=== PATIENT | female | born 1970 | race Caucasian/White ===

== ENCOUNTER → 2016-09-18 | Outpatient (CLI) | payer OTHER ==
[~2016-09-18] MED LIST: ESTR1TAB PO; LUMI0.01 OP; SYNT175T2 PO
--- NOTE | 2016-09-18 16:37 | REP ---
Clinical: Pain. Fall. Technique: Neutral and frog lateral views of the left hip. Findings: Age-related changes are appreciated. No acute fracture or dislocation. Surrounding soft tissues are unremarkable. Impression: No acute fracture or dislocation. Signed by Valente Degroot MD 09/18/2016 04:29 P
== END ==
LOC: M WUC 16:17
PROVIDERS: ATTEND Nurse Practitioner Family
DX: M25.552 Pain in left hip (principal); W00.0XXA Fall on same level due to ice and snow, initial encounter; Y92.9 Unspecified place or not applicable; Y93.9 Activity, unspecified; Y99.9 Unspecified external cause status

== ENCOUNTER → 2018-12-24 | Outpatient (REF) | payer OTHER ==
[2018-12-26 00:07] LABS: ANTINUCLEAR ANTIBODIES DIRECT Negative (Negative); CYCLIC CITRULLINATED PEPTIDE 5 units (0-19); Lyme Disease IgG/IgM Antibodie <0.91 ISR (0.00-0.90); Lyme Disease IgM Ab Quantitati <0.80 index (0.00-0.79)
== END ==
LOC: M LAB REF 13:24
PROVIDERS: ATTEND Internal Medicine
DX: M25.50 Pain in unspecified joint (principal)

== ENCOUNTER → 2020-03-20 | Outpatient (REF) | payer OTHER ==
[2020-05-06 23:07] LABS: BASO % 0.8 % (0.0-1.0); EOS # 0.1 10^3/uL (0.0-0.5); EOS % 2.6 % (0.0-3.0); HEMATOCRIT 46.1 % (36.0-47.0); HEMOGLOBIN 15.1 g/dl (12.0-15.5); LYMPH # 1.3 10^3/uL (1.5-5.0); LYMPH % 33.3 % (24.0-44.0); MEAN CORPUSCULAR HEMOGLOBIN 29.3 pg (27.0-33.0); MEAN CORPUSCULAR HGB CONC 32.8 g/dl (32.0-36.5); MEAN CORPUSCULAR VOLUME 89.5 fl (80.0-96.0); MONO # 0.5 10^3/uL (0.0-0.8); MONO % 12.9 % (0.0-5.0); NEUTROPHILS # 1.9 10^3/uL (1.5-8.5); NEUTROPHILS % 50.4 % (36.0-66.0); PLATELET COUNT, AUTOMATED 311 10^3/uL (150-450); RED BLOOD COUNT 5.15 10^6/uL (4.00-5.40); WHITE BLOOD COUNT 3.8 10^3/uL (4.0-10.0)
[2020-05-15 21:33] LABS: HEMOGLOBIN A1c 5.3 %
[2020-05-16 00:43] LABS: ALBUMIN 3.8 GM/DL (3.2-5.2); ALT/SGPT 24 U/L (12-78); BILIRUBIN,TOTAL 0.4 MG/DL (0.2-1.0); BLOOD UREA NITROGEN 13 MG/DL (7-18); CALCIUM LEVEL 8.9 MG/DL (8.5-10.1); CARBON DIOXIDE LEVEL 31 MEQ/L (21-32); CHLORIDE LEVEL 108 MEQ/L (98-107); CREATININE FOR GFR 0.87 MG/DL (0.55-1.30); FREE T4 1.43 NG/DL (0.76-1.46); GLOMERULAR FILTRATION RATE > 60.0 (>51); GLUCOSE, FASTING 88 MG/DL (70-100); POTASSIUM SERUM 4.5 MEQ/L (3.5-5.1); SODIUM LEVEL 140 MEQ/L (136-145); TOTAL 25(OH) VITAMIN D 74.8 NG/ML (30.0-100.0); TOTAL PROTEIN 6.8 GM/DL (6.4-8.2)
== END ==
LOC: M LABDRWAD 15:32
PROVIDERS: ATTEND Physician Assistant
DX: Z13.29 Encounter for screening for other suspected endocrine disorder (principal); E03.9 Hypothyroidism, unspecified

== ENCOUNTER → 2020-09-21 | Outpatient (CLI) | payer OTHER ==
[2020-09-21 12:21] LABS: EOS # 0.2 10^3/uL (0.0-0.5); EOS % 3.8 % (0.0-3.0); HEMATOCRIT 43.4 % (36.0-47.0); HEMOGLOBIN 14.3 g/dl (12.0-15.5); LYMPH # 1.3 10^3/uL (1.5-5.0); LYMPH % 33.4 % (24.0-44.0); MEAN CORPUSCULAR HEMOGLOBIN 29.5 pg (27.0-33.0); MEAN CORPUSCULAR HGB CONC 32.9 g/dl (32.0-36.5); MEAN CORPUSCULAR VOLUME 89.5 fl (80.0-96.0); MONO # 0.5 10^3/uL (0.0-0.8); MONO % 13.2 % (2.0-8.0); NEUTROPHILS # 1.9 10^3/uL (1.5-8.5); NEUTROPHILS % 48.6 % (36.0-66.0); PLATELET COUNT, AUTOMATED 279 10^3/uL (150-450); RED BLOOD COUNT 4.85 10^6/uL (4.00-5.40)
[2020-09-21 12:59] LABS: ALBUMIN 3.8 GM/DL (3.2-5.2); ALT/SGPT 32 U/L (12-78); BILIRUBIN,TOTAL 0.5 MG/DL (0.2-1.0); BLOOD UREA NITROGEN 18 MG/DL (7-18); CALCIUM LEVEL 9.1 MG/DL (8.5-10.1); CARBON DIOXIDE LEVEL 28 MEQ/L (21-32); CHLORIDE LEVEL 105 MEQ/L (98-107); FREE T4 1.22 NG/DL (0.76-1.46); GLOMERULAR FILTRATION RATE > 60.0 (>51); GLUCOSE, FASTING 85 MG/DL (70-100); POTASSIUM SERUM 4.8 MEQ/L (3.5-5.1); SODIUM LEVEL 140 MEQ/L (136-145); TOTAL 25(OH) VITAMIN D 53.9 NG/ML (30.0-100.0); TOTAL PROTEIN 6.6 GM/DL (6.4-8.2)
== END ==
LOC: M WUC 10:33
PROVIDERS: ATTEND Physician Assistant
DX: E03.9 Hypothyroidism, unspecified (principal)

== ENCOUNTER → 2020-11-13 | Outpatient (CLI) | payer OTHER ==
[2020-11-13 15:47] LABS: BASO % 0.7 % (0.0-1.0); EOS # 0.1 10^3/uL (0.0-0.5); EOS % 2.5 % (0.0-3.0); HEMATOCRIT 43.1 % (36.0-47.0); LYMPH # 1.4 10^3/uL (1.5-5.0); LYMPH % 32.9 % (24.0-44.0); MEAN CORPUSCULAR HGB CONC 32.5 g/dl (32.0-36.5); MEAN CORPUSCULAR VOLUME 89.4 fl (80.0-96.0); MONO # 0.4 10^3/uL (0.0-0.8); MONO % 9.1 % (2.0-8.0); NEUTROPHILS # 2.4 10^3/uL (1.5-8.5); NEUTROPHILS % 54.8 % (36.0-66.0); PLATELET COUNT, AUTOMATED 322 10^3/uL (150-450); RED BLOOD COUNT 4.82 10^6/uL (4.00-5.40); WHITE BLOOD COUNT 4.4 10^3/uL (4.0-10.0)
[2020-11-13 16:15] LABS: ERYTHROCYTE SEDIMENTATION RATE 7 mm/hr (0-30)
[2020-11-13 16:47] LABS: ALBUMIN 3.9 GM/DL (3.2-5.2); ALT/SGPT 34 U/L (12-78); BILIRUBIN,TOTAL 0.5 MG/DL (0.2-1.0); BLOOD UREA NITROGEN 16 MG/DL (7-18); CALCIUM LEVEL 9.2 MG/DL (8.5-10.1); CARBON DIOXIDE LEVEL 30 MEQ/L (21-32); CHLORIDE LEVEL 107 MEQ/L (98-107); CREATININE FOR GFR 0.67 MG/DL (0.55-1.30); FERRITIN 75 NG/ML (8-252); FREE T4 1.19 NG/DL (0.76-1.46); GLOMERULAR FILTRATION RATE > 60.0 (>51); GLUCOSE, FASTING 87 MG/DL (70-100); IRON (FE) 88 UG/DL (50-170); MAGNESIUM LEVEL 2.4 MG/DL (1.8-2.4); PERCENT SATURATION 30.1 % (13.2-45.0); POTASSIUM SERUM 4.2 MEQ/L (3.5-5.1); RHEUMATOID FACTOR QUANT < 10.0 IU/ML (<15.0); SODIUM LEVEL 142 MEQ/L (136-145); TOTAL IRON BINDING CAPACITY 292 UG/DL (250-450); TOTAL PROTEIN 6.8 GM/DL (6.4-8.2)
[2020-11-13 16:48] LABS: THYROID PEROXIDASE ANTIBODY < 28.0 U/ML (<60.0); TOTAL 25(OH) VITAMIN D 37.4 NG/ML (30.0-100.0)
[2020-11-13 16:49] LABS: VITAMIN B12 LEVEL 891 PG/ML (247-911)
[2020-11-15 23:07] LABS: ANA (HEP2) Negative (.); CYCLIC CITRULLINATED PEPTIDE 3 units (0-19); Lyme Disease IgG/IgM Antibodie <0.91 ISR (0.00-0.90); Lyme Disease IgM Ab Quantitati <0.80 index (0.00-0.79); TISSUE TRANSGLUTAMINASE IgA <2 U/mL (0-3); TISSUE TRANSGLUTAMINASE IgG <2 U/mL (0-5); UNITSIGA FOR GLIADIN IGA 5 units (0-19); UNITSIGG FOR GLIADIN IGG 1 units (0-19)
== END ==
LOC: M PLALAB 12:25
PROVIDERS: ATTEND Family Medicine
DX: M25.50 Pain in unspecified joint (principal); E03.9 Hypothyroidism, unspecified; R00.2 Palpitations; R53.83 Other fatigue; E55.9 Vitamin D deficiency, unspecified; D51.9 Vitamin B12 deficiency anemia, unspecified

== ENCOUNTER → 2020-12-29 | Outpatient (CLI) | payer OTHER ==
--- NOTE | 2021-01-01 09:16 | REP ---
INDICATION: HOD LYMPHOMA UNSPECIFIED COMPARISON: 06/18/2013 TECHNIQUE: Axial noncontrast images from the thoracic inlet to the upper abdomen with coronal and sagittal reformations. This CT examination was performed using the following dose reduction techniques: Automated exposure control, adjustment of mA and/or kv according to the patient's size, and use of iterative reconstruction technique. FINDINGS: Biapical scarring unchanged. The lung burger are otherwise well aerated and essentially clear. No consolidation, significant nodule or mass. No effusion. No pneumothorax. Tracheobronchial tree is patent. No obvious axillary, hilar, or mediastinal adenopathy. Calcified structure in the middle mediastinum anterior to the thoracic aortic arch is unchanged and may represent calcified lymph nodes. Surrounding musculoskeletal structures are intact. Limited upper abdomen demonstrates normal bilateral adrenal glands. The gallbladder demonstrates considerable wall thickening and multiple gallstones with central gaseous components. IMPRESSION: 1. No acute mediastinal or pleuroparenchymal process. Specifically, no adenopathy given history of lymphoma. 2. Abnormal appearance to the gallbladder with wall thickening and multiple gallstones containing central gas. <Electronically signed by Valente Degroot > 01/01/21 [id number]
== END ==
LOC: M RAD 08:41
PROVIDERS: ATTEND Internal Medicine Pulmonary Disease
DX: C81.90 Hodgkin lymphoma, unspecified, unspecified site (principal); K80.20 Calculus of gallbladder without cholecystitis without obstruction; K82.8 Other specified diseases of gallbladder

== ENCOUNTER → 2021-01-02 | Outpatient (CLI) | payer OTHER ==
--- NOTE | 2021-01-02 12:01 | PFTRPT ---
Site: [facility], [place], [address] [place] [address], [id number] ID: [id number] Name: MIESHA HARTMANN Visit Date: 01/02/2021 Second ID: [id number] Referring Doctor: Priya Yen MD Reviewing Doctor: Hussein Michaels MD Business Rules Analyst: Anabela ARNOLD RRT Age: 50 : 1970 Sex: Female Race: Height: 69.00 Inches Weight: 190.00 Lbs BSA: 2.02 Order IDs: [id number] Requested Test(s): <RESP-PFT.PFT B/A> Diagnosis: C81.90 test meet the ATS standards for acceptability and repeatability. Pt was given four puffs of albuterol for post bronchodilator Review Status: Not Reviewed Pre-Bronch Post-Bronch Pred Actual %Pred Actual %Chng SPIROMETRY FVC (L) 4.14 3.45 83 3.54 2 FEV1 (L) 3.25 2.75 84 2.89 5 FEV1/FVC (%) 80 80 99 82 2 FEF 25% (L/sec) 5.70 7.21 126 7.73 7 FEF 50% (L/sec) 3.86 2.95 76 3.50 18 FEF 75% (L/sec) 1.40 1.00 71 1.27 26 FEF 25-75% (L/sec) 2.98 2.43 81 2.98 22 FEF Max (L/sec) 7.47 8.60 115 8.13 -5 FIVC (L) 3.46 3.51 1 FIF 50% (L/sec) 3.90 6.32 161 7.09 12 FIF Max (L/sec) 6.55 7.10 8 MVV (L/min) 106 102 96 Expiratory Time (sec) 5.17 5.96 15 Back Extrap Vol (L) 0.09 0.11 29 Time To FEFmax (sec) 0.064 0.070 8 LUNG VOLUMES SVC (L) 3.72 3.58 96 IC (L) 2.51 2.77 110 ERV (L) 1.21 0.81 66 TGV (L) 3.29 3.18 96 RV (Pleth) (L) 2.08 2.37 113 TLC (Pleth) (L) 5.80 5.94 102 RV/TLC (Pleth) (%) 36 40 110 DIFFUSION DLCOunc (ml/min/mmHg) 24.56 25.54 103 DLCOcor (ml/min/mmHg) 24.56 25.38 103 DL/VA (ml/min/mmHg/L) 4.23 4.94 116 VA (L) 5.80 5.14 88 BHT (sec) 9.36 IVC (L) 3.55 TLC (SB) (L) 5.29 AIRWAYS RESISTANCE Raw (cmH2O/L/s) 1.86 1.13 60 Gaw (L/s/cmH2O) 1.03 0.95 92 sRaw (cmH2O*s) 4.76 3.72 78 sGaw (1/cmH2O*s) 0.20 0.28 140 BLOOD GASES Hgb (gm/dL) 13.6
== END ==
LOC: M CARPUL 10:56
PROVIDERS: ATTEND Internal Medicine Pulmonary Disease
DX: C81.90 Hodgkin lymphoma, unspecified, unspecified site (principal)

== ENCOUNTER → 2021-01-28 | Outpatient (CLI) | payer OTHER ==
--- NOTE | 2021-01-29 09:12 | REP ---
INDICATION: LT SHOULDER BURSITIS. Left shoulder pain and stiffness. No injury. COMPARISON: None. TECHNIQUE: Axial, oblique coronal, oblique sagittal imaging planes utilized. T1 and T2 weighted scans are included with without fat saturation. FINDINGS: The left glenohumeral and acromioclavicular joints are normally aligned. There is mild osteoarthritic hypertrophy at the acromioclavicular joint including a inferiorly directed spur the distal clavicle which indents the superior margin of the musculotendinous junction of the supraspinatus. There is mild swelling and increased signal intensity in the supraspinatus tendon diffusely on oblique coronal T1 weighted scans consistent with tendinosis. No focal supraspinatus tear is seen. There is minimal subcortical cyst formation in the superolateral humeral head. The subscapularis and infraspinatus tendons appear intact. Biceps tendon is unremarkable. There is a small sliver of subacromial subdeltoid bursal fluid. 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 Tendinosis in the supraspinatus tendon. Small bursal effusion. Otherwise negative. No labral tear or focal cuff tear seen on T2 weighted scans. <Electronically signed by Jed Clark > 01/29/21 [id number]
== END ==
LOC: M RAD 15:22
PROVIDERS: ATTEND Nurse Practitioner Family
DX: M75.52 Bursitis of left shoulder (principal); M19.012 Primary osteoarthritis, left shoulder; M75.82 Other shoulder lesions, left shoulder

== ENCOUNTER → 2021-02-09 | Outpatient (CLI) | payer OTHER ==
--- NOTE | 2021-02-09 12:25 | DEXAMM ---
INDICATION: HX OF OSTEOPETROSIS. COMPARISON: 03/15/2002. TECHNIQUE: Bone density was measured using dual-energy x-ray absorptiometry (DEXA). FINDINGS: AP SPINE L1-L4 BMD 1.536 g/cm2 Young Adult T-Score 2.8 Age Matched Z-Score 3.3. LT FEMUR, TOTAL BMD 1.449 g/cm2 Young Adult T-Score 3.5 Age Matched Z-Score 4.0. LT NECK BMD 1.317 g/cm2 Young Adult T-Score 2.0 Age Matched Z-Score 2.9. RT FEMUR, TOTAL BMD 1.414 g/cm2 Young Adult T-Score 3.2 Age Matched Z-Score 3.8. RT NECK BMD 1.284 g/cm2 Young Adult T-Score 1.8 Age Matched Z-Score 2.6. IMPRESSION: There is normal bone density of the spine. There is normal bone density of the left hip. There is normal bone density of the right hip. The density of the spine has decreased 2.8% since the initial exam on 03/15/2002. The density of the left hip has decreased 1.9% since initial exam on 03/15/2002. FOLLOW-UP: Recommendation for the next bone density exam: 5 years. <Electronically signed by Taran Valenzuela > 02/09/21 [id number]
== END ==
LOC: M WHC 08:59
PROVIDERS: ATTEND Physician Assistant
DX: Q78.2 Osteopetrosis (principal)

== ENCOUNTER → 2021-03-01 | Outpatient (REF) | payer OTHER ==
[2021-03-01 13:35] LABS: ALBUMIN 3.9 GM/DL (3.2-5.2); BILIRUBIN,DIRECT 0.2 MG/DL (0.0-0.2); BILIRUBIN,TOTAL 0.6 MG/DL (0.2-1.0); TOTAL PROTEIN 6.9 GM/DL (6.4-8.2)
== END ==
LOC: M LABDRWAD 12:25
PROVIDERS: ATTEND Internal Medicine Gastroenterology
DX: K22.70 Barrett's esophagus without dysplasia (principal); Z86.010 Personal history of colon polyps; R93.2 Abnormal findings on diagnostic imaging of liver and biliary tract; K21.9 Gastro-esophageal reflux disease without esophagitis; K80.20 Calculus of gallbladder without cholecystitis without obstruction

== ENCOUNTER → 2021-04-17 | Outpatient (CLI) | payer OTHER ==
[~2021-04-17] MED LIST changes: +CVS1CAP2 PO; +OMEP1CAP73 PO; +PHEN-239 PO; +REST0.05 OD; +SYNT125T PO; +VITMTA PO; +VIVE0.05 TD
--- NOTE | 2021-04-17 18:31 | ECGEPIP ---
[facility] Test Date: 2021-04-17 Pat Name: MIESHA HARTMANN Department: Room: - Gender: Female Casino Manager: janelle : 1970 Requested By: XANDER Huang Order Number: [id number] Reading MD: Joel Lewis Measurements Intervals [place] Rate: 73 P: 81 PA: 140 QRS: 50 QRSD: 82 T: 62 QT: 416 QTc: 458 Interpretive Statements Normal sinus rhythm Normal EKG No prior Electronically Signed on 04-17-2021 18:30:37 EDT by Joel Lewis
== END ==
LOC: M EKG 15:59
PROVIDERS: ATTEND Anesthesiology
DX: Z01.818 Encounter for other preprocedural examination (principal); E03.9 Hypothyroidism, unspecified; K21.9 Gastro-esophageal reflux disease without esophagitis

== ENCOUNTER → 2021-04-19 | Outpatient (CLI) | payer OTHER | LOC: M LABSMTC 09:07 | PROVIDERS: ATTEND Anesthesiology | DX: Z01.812 Encounter for preprocedural laboratory examination (principal); Z20.822 Contact with and (suspected) exposure to COVID-19 ==

== ENCOUNTER → 2021-04-24 | Day surgery (SDC) | payer OTHER ==
[~2021-04-24] VITALS: Ht 172.7 cm; Wt 85.6 kg
[~2021-04-24] MED LIST changes: +ACETAMINOPHEN 1000MG 100ML IV BTL (OFIRMEV) (J0131 PER 10MG) As Ordered ONE; +BUPIVACAINE/EPIN 0.25% 30 ML VIAL As Ordered ONE; +KETOROLAC 60MG 2ML VIAL As Ordered ONE; +LIDOCAINE 2% 100MG/5ML SDV (FOR ANES.) As Ordered ONE; +LR 1,000 ML IV ONE; +LR 1,000 ML IV SCH; +METOCLOPRAMIDE INJ 10MG/2ML VIAL (J2765 PER 1) As Ordered ONE; +MIDAZOLAM INJ 2MG/2ML VIAL (J2250 PER 1MG) As Ordered ONE; +ONDANSETRON 4MG/2ML VIAL As Ordered ONE; +ONDANSETRON 4MG/2ML VIAL IV PRN; +ROCURONIUM BROMIDE 50 MG/5 ML VIAL As Ordered ONE; +SCOPOLAMINE 1MG TRANSDERMAL PATCH TOP ONE; +SUGAMMADEX SODIUM 500 MG/5 ML VIAL (BRIDION) As Ordered ONE; +ceFAZolin 1GM VIAL (J0690 PER 500MG) As Ordered ONE; +dexameTHASONE 4 MG/ML 1ML VIAL (J1100 PER 1MG) As Ordered ONE; +fentaNYL 100 MCG/2 ML INJECTION (J3010) As Ordered ONE; +propofoL 200 MG/20 ML VIAL As Ordered ONE; +traMADol 50 MG TAB PO PRN
[2021-04-24] MEDS: ceFAZolin SOD 1 GM in D5W MINI-BAG PLUS 50 ML IV SCH (10:30)
[2021-04-24] MEDS: fentaNYL 100 MCG/2 ML INJECTION (J3010) IV PRN ×3 (12:04→12:15)
[2021-04-24] MEDS: oxyCODONE 5MG TAB PO PRN ×2 (12:04→12:33)
[2021-04-24 14:45] VITALS: BP 135/74
== END | disposition home or self-care (01) ==
LOC: M SDC 09:04
PROVIDERS: ATTEND Surgery
DX: K80.10 Calculus of gallbladder with chronic cholecystitis without obstruction (principal); G43.909 Migraine, unspecified, not intractable, without status migrainosus; E03.9 Hypothyroidism, unspecified; Z79.899 Other long term (current) drug therapy; Z88.8 Allergy status to other drugs, medicaments and biological substances; K21.9 Gastro-esophageal reflux disease without esophagitis; Z85.72 Personal history of non-Hodgkin lymphomas; Z92.3 Personal history of irradiation; Z92.21 Personal history of antineoplastic chemotherapy
CPT/HCPCS: 47562; 88304; J0131; J0690; J1100; J1885; J2250; J2405; J2765; J3010

== ENCOUNTER → 2021-04-30 | Outpatient (REF) | payer OTHER ==
[~2021-04-30] MED LIST changes: -ACETAMINOPHEN 1000MG 100ML IV BTL (OFIRMEV) (J0131 PER 10MG) As Ordered ONE; -BUPIVACAINE/EPIN 0.25% 30 ML VIAL As Ordered ONE; -KETOROLAC 60MG 2ML VIAL As Ordered ONE; -LIDOCAINE 2% 100MG/5ML SDV (FOR ANES.) As Ordered ONE; -LR 1,000 ML IV ONE; -LR 1,000 ML IV SCH; -METOCLOPRAMIDE INJ 10MG/2ML VIAL (J2765 PER 1) As Ordered ONE; -MIDAZOLAM INJ 2MG/2ML VIAL (J2250 PER 1MG) As Ordered ONE; -ONDANSETRON 4MG/2ML VIAL As Ordered ONE; -ONDANSETRON 4MG/2ML VIAL IV PRN; -ROCURONIUM BROMIDE 50 MG/5 ML VIAL As Ordered ONE; -SCOPOLAMINE 1MG TRANSDERMAL PATCH TOP ONE; -SUGAMMADEX SODIUM 500 MG/5 ML VIAL (BRIDION) As Ordered ONE; -ceFAZolin 1GM VIAL (J0690 PER 500MG) As Ordered ONE; -dexameTHASONE 4 MG/ML 1ML VIAL (J1100 PER 1MG) As Ordered ONE; -fentaNYL 100 MCG/2 ML INJECTION (J3010) As Ordered ONE; -propofoL 200 MG/20 ML VIAL As Ordered ONE; -traMADol 50 MG TAB PO PRN
[2021-04-30 15:56] LABS: BASO % 0.6 % (0.0-1.0); EOS # 0.2 10^3/uL (0.0-0.5); EOS % 4.2 % (0.0-3.0); HEMATOCRIT 45.9 % (36.0-47.0); HEMOGLOBIN 15.1 g/dl (12.0-15.5); LYMPH # 1.3 10^3/uL (1.5-5.0); MEAN CORPUSCULAR HGB CONC 32.9 g/dl (32.0-36.5); MEAN CORPUSCULAR VOLUME 88.1 fl (80.0-96.0); MONO # 0.4 10^3/uL (0.0-0.8); MONO % 8.7 % (2.0-8.0); NEUTROPHILS % 60.3 % (36.0-66.0); PLATELET COUNT, AUTOMATED 334 10^3/uL (150-450); RED BLOOD COUNT 5.21 10^6/uL (4.00-5.40)
[2021-04-30 16:22] LABS: ALBUMIN 3.5 GM/DL (3.2-5.2); ALT/SGPT 97 U/L (12-78); BILIRUBIN,TOTAL 0.6 MG/DL (0.2-1.0); BLOOD UREA NITROGEN 8 MG/DL (7-18); CARBON DIOXIDE LEVEL 31 MEQ/L (21-32); CHLORIDE LEVEL 105 MEQ/L (98-107); CREATININE FOR GFR 0.84 MG/DL (0.55-1.30); FREE T4 1.21 NG/DL (0.76-1.46); GLOMERULAR FILTRATION RATE > 60.0 (>51); GLUCOSE, FASTING 84 MG/DL (70-100); POTASSIUM SERUM 4.4 MEQ/L (3.5-5.1); SODIUM LEVEL 141 MEQ/L (136-145); TOTAL PROTEIN 6.8 GM/DL (6.4-8.2)
[2021-04-30 16:23] LABS: TOTAL 25(OH) VITAMIN D 38.2 NG/ML (30.0-100.0)
== END ==
LOC: M LABDRWAD 14:51
PROVIDERS: ATTEND Physician Assistant
DX: E03.9 Hypothyroidism, unspecified (principal); R53.83 Other fatigue

== ENCOUNTER → 2021-05-21 | Outpatient (CLI) | payer OTHER ==
[~2021-05-21] MED LIST changes: +READI-CAT 2 As Ordered ONE
[2021-05-21 15:53] LABS: BASO # 0.1 10^3/uL (0.0-0.2); BASO % 0.9 % (0.0-1.0); EOS # 0.4 10^3/uL (0.0-0.5); EOS % 7.8 % (0.0-3.0); HEMATOCRIT 41.8 % (36.0-47.0); LYMPH # 1.7 10^3/uL (1.5-5.0); MEAN CORPUSCULAR HEMOGLOBIN 29.5 pg (27.0-33.0); MEAN CORPUSCULAR HGB CONC 33.5 g/dl (32.0-36.5); MEAN CORPUSCULAR VOLUME 88.2 fl (80.0-96.0); MONO # 0.5 10^3/uL (0.0-0.8); MONO % 9.1 % (2.0-8.0); NEUTROPHILS # 2.9 10^3/uL (1.5-8.5); NEUTROPHILS % 50.8 % (36.0-66.0); PLATELET COUNT, AUTOMATED 299 10^3/uL (150-450); RED BLOOD COUNT 4.74 10^6/uL (4.00-5.40); WHITE BLOOD COUNT 5.6 10^3/uL (4.0-10.0)
[2021-05-21 16:27] LABS: ALT/SGPT 35 U/L (12-78); BILIRUBIN,DIRECT 0.2 MG/DL (0.0-0.2); BILIRUBIN,TOTAL 0.6 MG/DL (0.2-1.0); BLOOD UREA NITROGEN 17 MG/DL (7-18); CALCIUM LEVEL 9.3 MG/DL (8.5-10.1); CARBON DIOXIDE LEVEL 33 MEQ/L (21-32); CHLORIDE LEVEL 103 MEQ/L (98-107); CREATININE FOR GFR 0.82 MG/DL (0.55-1.30); GLOMERULAR FILTRATION RATE > 60.0 (>51); GLUCOSE, FASTING 86 MG/DL (70-100); LIPASE 100 U/L (73-393); POTASSIUM SERUM 4.3 MEQ/L (3.5-5.1); SODIUM LEVEL 139 MEQ/L (136-145); TOTAL PROTEIN 7.3 GM/DL (6.4-8.2)
--- NOTE | 2021-05-21 18:11 | REPVR ---
PROCEDURE INFORMATION: Exam: CT Abdomen And Pelvis Without Contrast Exam date and time: 05/21/2021 5:29 PM Age: 51 years old Clinical indication: Abdominal pain; Generalized; Additional info: Abd pain, rlq pain/ labs 1st, CT 2nd TECHNIQUE: Imaging protocol: Computed tomography of the abdomen and pelvis without contrast. Radiation optimization: All CT scans at this facility use at least one of these dose optimization techniques: automated exposure control; mA and/or kV adjustment per patient size (includes targeted exams where dose is matched to clinical indication); or iterative reconstruction. COMPARISON: CT Chest without contrast 12/29/2020 8:53 AM FINDINGS: Liver: Normal. No mass. Gallbladder and bile ducts: The gallbladder is surgically absent, with metallic clips in the gallbladder fossa. No extrahepatic biliary ductal dilatation or calculus. Pancreas: Normal. No ductal dilation. Spleen: Normal. No splenomegaly. Adrenal glands: Normal. No mass. Kidneys and ureters: Normal. No hydronephrosis. Stomach and bowel: There is mildly increased stool noted in the ascending and transverse colon. Appendix: The vermiform appendix is not identified on this examination. There is, however, no pericecal abnormality to suggest appendicitis. Intraperitoneal space: No free air. No significant fluid collection. Vasculature: Mild aortic atherosclerotic calcification without aneurysm. Left pelvic calcified phleboliths. Lymph nodes: No enlarged lymph nodes. Urinary bladder: Unremarkable as visualized. Reproductive: Partial hysterectomy and bilateral oophorectomy. Bones/joints: Nonspecific cancellous bone sclerosis posterior (series 202, image 72) and superior (series 202, image 65) right iliac bone. Soft tissues: Unremarkable. IMPRESSION: 1. 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 Comparison with prior studies recommended, if available. Otherwise radionuclide bone scan are followup may be helpful. 2. Partial hysterectomy and bilateral oophorectomy. 3. Prior cholecystectomy. 4. Mild abdominal colonic constipation. Electronically signed by: Stan Lomas On 05/21/2021 18:11:00 PM
== END ==
LOC: M RAD 15:22
PROVIDERS: ATTEND Physician Assistant
DX: R10.84 Generalized abdominal pain (principal); Z90.49 Acquired absence of other specified parts of digestive tract; I70.0 Atherosclerosis of aorta; K59.00 Constipation, unspecified

== ENCOUNTER → 2021-10-23 | Outpatient (CLI) | payer OTHER ==
[~2021-10-23] MED LIST changes: -READI-CAT 2 As Ordered ONE
[2021-10-23 17:12] LABS: BASO # 0.1 10^3/uL (0.0-0.2); EOS # 0.3 10^3/uL (0.0-0.5); EOS % 6.3 % (0.0-3.0); HEMOGLOBIN 13.9 g/dl (12.0-15.5); LYMPH # 1.7 10^3/uL (1.5-5.0); LYMPH % 33.6 % (24.0-44.0); MEAN CORPUSCULAR HEMOGLOBIN 28.9 pg (27.0-33.0); MEAN CORPUSCULAR HGB CONC 33.1 g/dl (32.0-36.5); MEAN CORPUSCULAR VOLUME 87.3 fl (80.0-96.0); MONO # 0.6 10^3/uL (0.0-0.8); MONO % 11.9 % (2.0-8.0); NEUTROPHILS # 2.4 10^3/uL (1.5-8.5); PLATELET COUNT, AUTOMATED 323 10^3/uL (150-450); RED BLOOD COUNT 4.81 10^6/uL (4.00-5.40); WHITE BLOOD COUNT 5.1 10^3/uL (4.0-10.0)
[2021-10-23 17:45] LABS: ALBUMIN 3.8 GM/DL (3.2-5.2); ALT/SGPT 50 U/L (12-78); BILIRUBIN,TOTAL 0.4 MG/DL (0.2-1.0); BLOOD UREA NITROGEN 17 MG/DL (7-18); CALCIUM LEVEL 8.7 MG/DL (8.5-10.1); CARBON DIOXIDE LEVEL 31 MEQ/L (21-32); CHLORIDE LEVEL 109 MEQ/L (98-107); CREATININE FOR GFR 0.96 MG/DL (0.55-1.30); FREE T4 1.09 NG/DL (0.76-1.46); GLOMERULAR FILTRATION RATE > 60.0 (>51); GLUCOSE, FASTING 85 MG/DL (70-100); POTASSIUM SERUM 4.5 MEQ/L (3.5-5.1); SODIUM LEVEL 142 MEQ/L (136-145); TOTAL PROTEIN 6.6 GM/DL (6.4-8.2)
[2021-10-23 17:53] LABS: TOTAL 25(OH) VITAMIN D 39.6 NG/ML (30.0-100.0)
== END ==
LOC: M PLALAB 15:50
PROVIDERS: ATTEND Physician Assistant
DX: E03.9 Hypothyroidism, unspecified (principal); Z85.29 Personal history of malignant neoplasm of other respiratory and intrathoracic organs; Q78.2 Osteopetrosis

== ENCOUNTER → 2021-10-23 | Outpatient (CLI) | payer OTHER | LOC: M WHC 14:58 | PROVIDERS: ATTEND Physician Assistant | DX: E03.9 Hypothyroidism, unspecified (principal); Z85.29 Personal history of malignant neoplasm of other respiratory and intrathoracic organs ==

== ENCOUNTER → 2021-12-25 | Outpatient (REF) | payer OTHER ==
[2021-12-25 17:03] LABS: THYROID STIMULATING HORMONE 2.88 uIU/ML (0.358-3.740)
== END ==
LOC: M LABDRWAD 16:00
PROVIDERS: ATTEND Physician Assistant
DX: E03.9 Hypothyroidism, unspecified (principal); E55.9 Vitamin D deficiency, unspecified

== ENCOUNTER → 2022-03-27 | Outpatient (CLI) | payer OTHER ==
[2022-03-27 14:00] LABS: BASO % 0.7 % (0.0-1.0); EOS # 0.1 10^3/uL (0.0-0.5); EOS % 2.4 % (0.0-3.0); HEMATOCRIT 45.9 % (36.0-47.0); HEMOGLOBIN 15.1 g/dl (12.0-15.5); LYMPH # 1.2 10^3/uL (1.5-5.0); LYMPH % 29.8 % (24.0-44.0); MEAN CORPUSCULAR HEMOGLOBIN 28.8 pg (27.0-33.0); MEAN CORPUSCULAR HGB CONC 32.9 g/dl (32.0-36.5); MEAN CORPUSCULAR VOLUME 87.4 fl (80.0-96.0); MONO # 0.5 10^3/uL (0.0-0.8); MONO % 11.2 % (2.0-8.0); NEUTROPHILS # 2.3 10^3/uL (1.5-8.5); NEUTROPHILS % 55.7 % (36.0-66.0); PLATELET COUNT, AUTOMATED 319 10^3/uL (150-450); RED BLOOD COUNT 5.25 10^6/uL (4.00-5.40); WHITE BLOOD COUNT 4.1 10^3/uL (4.0-10.0)
[2022-03-27 14:17] LABS: ALBUMIN 4.1 GM/DL (3.2-5.2); ALT/SGPT 33 U/L (12-78); BILIRUBIN,TOTAL 0.7 MG/DL (0.2-1.0); BLOOD UREA NITROGEN 15 MG/DL (7-18); CALCIUM LEVEL 9.8 MG/DL (8.5-10.1); CARBON DIOXIDE LEVEL 27 MEQ/L (21-32); CHLORIDE LEVEL 105 MEQ/L (98-107); CREATININE FOR GFR 0.87 MG/DL (0.55-1.30); FREE T4 1.19 NG/DL (0.76-1.46); GLOMERULAR FILTRATION RATE > 60.0 (>51); GLUCOSE, FASTING 93 MG/DL (70-100); POTASSIUM SERUM 4.9 MEQ/L (3.5-5.1); SODIUM LEVEL 140 MEQ/L (136-145)
[2022-03-27 14:45] LABS: TOTAL 25(OH) VITAMIN D 50.6 NG/ML (30.0-100.0); VITAMIN B12 LEVEL 513 PG/ML
[2022-03-28 12:28] LABS: FOLATE 5.5 NG/ML
== END ==
LOC: M ADAMS 10:22
PROVIDERS: ATTEND Physician Assistant
DX: E03.9 Hypothyroidism, unspecified (principal)

== ENCOUNTER → 2022-11-19 | Outpatient (REF) | payer OTHER ==
[2022-11-19 16:13] LABS: APPEARANCE, URINE CLEAR (CLEAR); BACTERIA, URINE AUTO 1+ (NEGATIVE); BILIRUBIN, URINE AUTO NEGATIVE (NEGATIVE); BLOOD, URINE BLOOD NEGATIVE (NEGATIVE); COLOR, URINE STRAW (YELLOW); GLUCOSE, URINE (UA) AUTO NEGATIVE (NEGATIVE); KETONE, URINE AUTO NEGATIVE (NEGATIVE); LEUKOCYTE ESTERASE, URINE AUTO 1+ (NEGATIVE); NITRITE, URINE AUTO NEGATIVE (NEGATIVE); PROTEIN, URINE AUTO NEGATIVE (NEGATIVE); RBC, URINE AUTO 0 /HPF (0-3); SPECIFIC GRAVITY URINE AUTO 1.006 (1.002-1.035); SQUAMOUS EPITHELIAL CELL UR AU 1 /HPF (0-6); UROBILINOGEN, URINE AUTO 0.2 mg/dL (0.0-2.0); WBC, URINE AUTO 2 /HPF (0-3)
== END ==
LOC: M LAB REF 15:25
PROVIDERS: ATTEND Nurse Practitioner
DX: R82.90 Unspecified abnormal findings in urine (principal); R10.2 Pelvic and perineal pain; R30.0 Dysuria

== ENCOUNTER → 2023-03-20 | Outpatient (REF) | payer OTHER | LOC: M LAB REF 17:20 | PROVIDERS: ATTEND Physician Assistant | DX: R30.0 Dysuria (principal) ==

== ENCOUNTER → 2023-03-24 | Outpatient (REF) | payer OTHER ==
[2023-03-24 13:01] LABS: BASO % 0.9 % (0.0-1.0); EOS # 0.3 10^3/uL (0.0-0.5); EOS % 6.2 % (0.0-3.0); HEMATOCRIT 43.1 % (36.0-47.0); HEMOGLOBIN 13.9 g/dl (12.0-15.5); LYMPH # 1.4 10^3/uL (1.5-5.0); MEAN CORPUSCULAR HEMOGLOBIN 29.3 pg (27.0-33.0); MEAN CORPUSCULAR HGB CONC 32.3 g/dl (32.0-36.5); MEAN CORPUSCULAR VOLUME 90.7 fl (80.0-96.0); MONO # 0.5 10^3/uL (0.0-0.8); MONO % 12.4 % (2.0-8.0); NEUTROPHILS # 2.1 10^3/uL (1.5-8.5); NEUTROPHILS % 48.3 % (36.0-66.0); PLATELET COUNT, AUTOMATED 340 10^3/uL (150-450); RED BLOOD COUNT 4.75 10^6/uL (4.00-5.40); WHITE BLOOD COUNT 4.4 10^3/uL (4.0-10.0)
[2023-03-24 13:36] LABS: FREE T4 1.37 NG/DL (0.89-1.76)
[2023-03-24 13:37] LABS: THYROID STIMULATING HORMONE 2.093 uIU/ML (0.55-4.78); TOTAL 25(OH) VITAMIN D 58.6 NG/ML (20.0-100.0)
[2023-03-24 13:38] LABS: ALBUMIN 4.1 G/DL (3.2-5.2); BILIRUBIN,TOTAL 0.5 MG/DL (0.3-1.2); CALCIUM LEVEL 9.7 MG/DL (8.5-10.1); CHOLESTEROL RISK RATIO 3.87 (<5); CREATININE FOR GFR 1.14 MG/DL (0.55-1.30); GLOMERULAR FILTRATION RATE 52.9 (>51); LDL CHOLESTEROL 128.2 MG/DL (<100); POTASSIUM SERUM 4.5 MMOL/L (3.5-5.1); TOTAL PROTEIN 7.1 G/DL (5.7-8.2)
== END ==
LOC: M LABDRWAD 12:17
PROVIDERS: ATTEND Physician Assistant
DX: E03.9 Hypothyroidism, unspecified (principal); E55.9 Vitamin D deficiency, unspecified; Z13.220 Encounter for screening for lipoid disorders

== ENCOUNTER → 2023-12-16 | Outpatient (REF) | payer OTHER ==
[2023-12-16 14:27] LABS: MAGNESIUM LEVEL 1.9 MG/DL (1.8-2.4)
== END ==
LOC: M LABDRWAD 12:35
PROVIDERS: ATTEND Nurse Practitioner Family
DX: K59.00 Constipation, unspecified (principal); K22.70 Barrett's esophagus without dysplasia; Z86.010 Personal history of colon polyps; K58.9 Irritable bowel syndrome, unspecified; E55.9 Vitamin D deficiency, unspecified

== ENCOUNTER → 2023-12-16 | Outpatient (REF) | payer OTHER ==
[2023-12-16 13:56] LABS: BASO % 0.8 % (0.0-1.0); EOS # 0.1 10^3/uL (0.0-0.5); HEMATOCRIT 42.7 % (36.0-47.0); HEMOGLOBIN 14.2 g/dl (12.0-15.5); LYMPH # 1.1 10^3/uL (1.5-5.0); LYMPH % 29.4 % (24.0-44.0); MEAN CORPUSCULAR HEMOGLOBIN 28.5 pg (27.0-33.0); MEAN CORPUSCULAR HGB CONC 33.3 g/dl (32.0-36.5); MEAN CORPUSCULAR VOLUME 85.6 fl (80.0-96.0); MONO # 0.4 10^3/uL (0.0-0.8); MONO % 11.3 % (2.0-8.0); NEUTROPHILS # 2.1 10^3/uL (1.5-8.5); NEUTROPHILS % 55.2 % (36.0-66.0); PLATELET COUNT, AUTOMATED 314 10^3/uL (150-450); RED BLOOD COUNT 4.99 10^6/uL (4.00-5.40); WHITE BLOOD COUNT 3.7 10^3/uL (4.0-10.0)
[2023-12-16 14:34] LABS: ALBUMIN 3.7 G/DL (3.2-5.2); ALKALINE PHOSPHATASE 107 U/L (46-116); ALT/SGPT 44 U/L (7.0-40); AST/SGOT 25 U/L (<34); BILIRUBIN,TOTAL 0.5 MG/DL (0.3-1.2); BLOOD UREA NITROGEN 17 MG/DL (9-23); CALCIUM LEVEL 9.2 MG/DL (8.5-10.1); CARBON DIOXIDE LEVEL 26 MMOL/L (20-31); CHLORIDE LEVEL 105 MMOL/L (98-107); CREATININE FOR GFR 0.77 MG/DL (0.55-1.30); GLOMERULAR FILTRATION RATE > 60.0 (>51); GLUCOSE, FASTING 90 MG/DL (60-100); POTASSIUM SERUM 4.5 MMOL/L (3.5-5.1); SODIUM LEVEL 140 MMOL/L (136-145); THYROID STIMULATING HORMONE 3.205 uIU/ML (0.55-4.78); TOTAL PROTEIN 6.5 G/DL (5.7-8.2)
== END ==
LOC: M LABDRWAD 12:32
PROVIDERS: ATTEND Physician Assistant
DX: E03.9 Hypothyroidism, unspecified (principal); E55.9 Vitamin D deficiency, unspecified; J84.10 Pulmonary fibrosis, unspecified

== ENCOUNTER 2024-01-23 22:34 | Emergency (ER) | payer OTHER ==
[~2024-01-23] VITALS: Ht 172.7 cm; Wt 100.0 kg
[2024-01-23 23:26] LABS: BASO % 0.6 % (0.0-1.0); EOS # 0.1 10^3/uL (0.0-0.5); EOS % 2.8 % (0.0-3.0); HEMATOCRIT 42.6 % (36.0-47.0); LYMPH # 1.4 10^3/uL (1.5-5.0); LYMPH % 30.5 % (24.0-44.0); MEAN CORPUSCULAR HEMOGLOBIN 28.1 pg (27.0-33.0); MEAN CORPUSCULAR HGB CONC 32.9 g/dl (32.0-36.5); MEAN CORPUSCULAR VOLUME 85.4 fl (80.0-96.0); MONO # 0.6 10^3/uL (0.0-0.8); MONO % 12.8 % (2.0-8.0); NEUTROPHILS # 2.5 10^3/uL (1.5-8.5); NEUTROPHILS % 53.1 % (36.0-66.0); PLATELET COUNT, AUTOMATED 325 10^3/uL (150-450); RED BLOOD COUNT 4.99 10^6/uL (4.00-5.40); WHITE BLOOD COUNT 4.6 10^3/uL (4.0-10.0)
[2024-01-23 23:42] LABS: INR 0.96; PARTIAL THROMBOPLASTIN TIME 27.8 SECONDS (24.8-34.2); PROTHROMBIN TIME 12.5 SECONDS (12.5-14.5)
[2024-01-23 23:49] LABS: LIPASE 37 U/L (12-53)
[2024-01-23 23:50] LABS: CK-MB VALUE MASS < 1.0 NG/ML (<3.6)
[2024-01-23 23:51] LABS: ALKALINE PHOSPHATASE 119 U/L (46-116); ALT/SGPT 39 U/L (7.0-40); AST/SGOT 15 U/L (<34); BILIRUBIN,DIRECT < 0.1 MG/DL (<0.4); BILIRUBIN,TOTAL 0.3 MG/DL (0.3-1.2); BLOOD UREA NITROGEN 13 MG/DL (9-23); CALCIUM LEVEL 9.3 MG/DL (8.5-10.1); CARBON DIOXIDE LEVEL 29 MMOL/L (20-31); CHLORIDE LEVEL 109 MMOL/L (98-107); CPK CREATINE PHOSPHOKINASE 75 U/L (34-145); GLOMERULAR FILTRATION RATE > 60.0 (>51); GLUCOSE, FASTING 111 MG/DL (60-100); MB/CK RELATIVE INDEX 1.33 (< OR =4); SODIUM LEVEL 143 MMOL/L (136-145); TOTAL PROTEIN 6.9 G/DL (5.7-8.2)
[2024-01-24 01:30] VITALS: TEMP 96.6
[2024-01-24 01:45] LABS: CK-MB VALUE MASS < 1.0 NG/ML (<3.6)
[2024-01-24 01:46] LABS: CPK CREATINE PHOSPHOKINASE 73 U/L (34-145); MB/CK RELATIVE INDEX 1.36 (< OR =4)
[2024-01-24 02:45] VITALS: BP 134/63; O2SAT 96
== END 2024-01-24 02:47 | disposition home or self-care (01) ==
LOC: M ED 22:34
DX: R07.9 Chest pain, unspecified (principal); R00.2 Palpitations; E03.9 Hypothyroidism, unspecified; Z88.8 Allergy status to other drugs, medicaments and biological substances; Z79.899 Other long term (current) drug therapy

== ENCOUNTER → 2024-02-25 | Outpatient (CLI) | payer OTHER | LOC: M WHC 10:57 | PROVIDERS: ATTEND Physician Assistant | DX: Z13.820 Encounter for screening for osteoporosis (principal); Q78.2 Osteopetrosis ==

== ENCOUNTER → 2024-11-26 | Outpatient (REF) | payer OTHER ==
[~2024-11-26] MED LIST changes: -PHEN-239 PO; +PHEN37.511 PO
[2024-11-26 14:16] LABS: BASO # 0.1 10^3/uL (0.0-0.2); BASO % 1.4 % (0.0-1.0); EOS # 0.2 10^3/uL (0.0-0.5); EOS % 3.7 % (0.0-3.0); HEMATOCRIT 45.3 % (36.0-47.0); HEMOGLOBIN 14.4 g/dl (12.0-15.5); LYMPH # 1.4 10^3/uL (1.5-5.0); LYMPH % 32.6 % (24.0-44.0); MEAN CORPUSCULAR HEMOGLOBIN 27.6 pg (27.0-33.0); MEAN CORPUSCULAR HGB CONC 31.8 g/dl (32.0-36.5); MEAN CORPUSCULAR VOLUME 86.8 fl (80.0-96.0); MONO # 0.5 10^3/uL (0.0-0.8); MONO % 12.2 % (2.0-8.0); NEUTROPHILS # 2.2 10^3/uL (1.5-8.5); NEUTROPHILS % 49.9 % (36.0-66.0); PLATELET COUNT, AUTOMATED 322 10^3/uL (150-450); RED BLOOD COUNT 5.22 10^6/uL (4.00-5.40); WHITE BLOOD COUNT 4.4 10^3/uL (4.0-10.0)
[2024-11-26 14:23] LABS: CALCIUM LEVEL 9.3 MG/DL (8.5-10.1); CREATININE FOR GFR 0.82 MG/DL (0.55-1.30); GLOMERULAR FILTRATION RATE 84.4 (>51); POTASSIUM SERUM 4.5 MMOL/L (3.5-5.1)
== END ==
LOC: M LABDRWAD 13:17
PROVIDERS: ATTEND Internal Medicine Cardiovascular Disease
DX: I48.0 Paroxysmal atrial fibrillation (principal); I50.9 Heart failure, unspecified

== ENCOUNTER → 2024-12-14 | Outpatient (REF) | payer OTHER ==
[2024-12-14 14:38] LABS: ALBUMIN 3.8 G/DL (3.2-5.2); BILIRUBIN,DIRECT 0.2 MG/DL (<0.4); BILIRUBIN,TOTAL 0.5 MG/DL (0.3-1.2)
== END ==
LOC: M LABDRWAD 13:18
PROVIDERS: ATTEND Nurse Practitioner Family
DX: K22.70 Barrett's esophagus without dysplasia (principal); R10.13 Epigastric pain

== ENCOUNTER → 2024-12-14 | Outpatient (REF) | payer OTHER ==
[2024-12-14 14:01] LABS: BASO % 1.3 % (0.0-1.0); EOS # 0.1 10^3/uL (0.0-0.5); EOS % 3.6 % (0.0-3.0); HEMATOCRIT 44.2 % (36.0-47.0); HEMOGLOBIN 14.5 g/dl (12.0-15.5); MEAN CORPUSCULAR HEMOGLOBIN 28.2 pg (27.0-33.0); MEAN CORPUSCULAR HGB CONC 32.8 g/dl (32.0-36.5); MONO # 0.5 10^3/uL (0.0-0.8); MONO % 14.9 % (2.0-8.0); NEUTROPHILS # 1.4 10^3/uL (1.5-8.5); NEUTROPHILS % 45.9 % (36.0-66.0); PLATELET COUNT, AUTOMATED 297 10^3/uL (150-450); RED BLOOD COUNT 5.14 10^6/uL (4.00-5.40)
[2024-12-14 14:35] LABS: THYROID STIMULATING HORMONE 1.748 uIU/ML (0.55-4.78); TOTAL 25(OH) VITAMIN D 57.1 NG/ML (20.0-100.0)
[2024-12-14 14:38] LABS: FREE T4 1.67 NG/DL (0.89-1.76)
[2024-12-14 14:39] LABS: ALBUMIN 3.8 G/DL (3.2-5.2); BILIRUBIN,TOTAL 0.6 MG/DL (0.3-1.2); CALCIUM LEVEL 9.2 MG/DL (8.5-10.1); CHOLESTEROL RISK RATIO 4.59 (<5); CREATININE FOR GFR 0.99 MG/DL (0.55-1.30); GLOMERULAR FILTRATION RATE 67.3 (>51); HDL CHOLESTEROL 49.2 MG/DL (>40); LDL CHOLESTEROL 153.8 MG/DL (<100); NON-HDL-C 176.8 MG/DL; POTASSIUM SERUM 4.2 MMOL/L (3.5-5.1); TOTAL PROTEIN 6.9 G/DL (5.7-8.2)
== END ==
LOC: M LABDRWAD 13:19
PROVIDERS: ATTEND Physician Assistant
DX: E03.9 Hypothyroidism, unspecified (principal); I48.0 Paroxysmal atrial fibrillation; E55.9 Vitamin D deficiency, unspecified

== ENCOUNTER → 2025-04-20 | Outpatient (CLI) | payer OTHER | LOC: M RAD 09:26 | PROVIDERS: ATTEND Nurse Practitioner Family | DX: R10.13 Epigastric pain (principal) ==